=== PATIENT | male | born 1975 | race Two or more races ===

== ENCOUNTER 2021-05-16 12:46 | Inpatient (IN) | payer OTHER ==
[~2021-05-16] VITALS: Ht 172.7 cm; Wt 66.2 kg
[2021-05-16] MEDS ORDERED: SODIUM CHLORIDE 0.9% 500 ML IVB ONE (13:30)
[2021-05-16 14:23] LABS: Urine Bacteria NONE SEEN /hpf (None Seen); Urine Blood 1+ /uL (Negative); Urine Mucus FEW (None Seen); Urine Specific Gravity 1.027 (1.001-1.035); Urine WBC 29 /hpf (0 - 3)
[2021-05-16 15:05] LABS: Basophils # (auto) 0.1 10 ^3/uL (0-0.2); Eosinophils # (auto) 0.1 10 ^3/uL (0-0.8); Nucleated Red Blood Cells % 0.1 %; White Blood Cell 5.1 10^3/uL (4.4-10.8)
[2021-05-16 15:07] LABS: Basophils % (auto) 1.1 % (0.0-2.0); Eosinophils % (auto) 2.4 % (0.0-7.0); Hematocrit 29.4 % (41.0-53.0); Hemoglobin 9.7 g/dL (13.5-17.5); Lymphocytes % (auto) 18.7 % (10.0-50.0); Mean Corpuscular Volume 78.9 fL (80.0-100.0); Monocytes # (auto) 0.4 10 ^3/uL (0-1.3); Monocytes % (auto) 7.2 % (0.0-12.0); Neutrophils # (auto) 3.6 10 ^3/uL (1.6-8.6); Neutrophils % (auto) 70.6 % (37.0-80.0); Red Blood Cells 3.73 10^6/uL (4.5-5.90); Red Cell Distribution Width 22.3 % (11.8-14.3)
[2021-05-16] MEDS ORDERED: levoFLOXacin 500MG 100 ML IV ONE (15:45)
[2021-05-16] MEDS ORDERED: MORPHINE SULFATE 4 MG/ML SYR/VIAL IV ONE (16:30)
[2021-05-16] MEDS ORDERED: ONDANSETRON HCL 4 MG/2 ML VIAL IV ONE ×2 (16:30→19:15)
[2021-05-16 18:13] LABS: Alanine Aminotransferase 129 U/L (16-61); Aspartate Aminotransferase 96 U/L (15-37)
[2021-05-16 18:38] LABS: Alkaline Phosphatase 470 U/L (45-117); Anion Gap 7 (5-15); BUN/Creatinine Ratio 12.7; Blood Urea Nitrogen 10 mg/dL (7-18); Carbon Dioxide 22 mmol/L (21-32); Chloride 110 mmol/L (98-107); GFR African American 138 mL/min; GFR Non-African American 114 mL/min; Glucose 82 mg/dL (74-106); Potassium 3.3 mmol/L (3.5-5.1); Sodium 139 mmol/L (136-145)
[2021-05-16 18:39] LABS: Albumin 2.5 g/dL (3.4-5.0); Amylase 73 U/L (25-115); Bilirubin, Total 7.5 mg/dL (0.2-1.0); Calcium 8.2 mg/dL (8.5-10.1); Lipase 143 U/L (73-393); Total Protein 8.7 g/dL (6.4-8.2)
[2021-05-16] MEDS ORDERED: HYDROmorphone HCL 2 MG/ML VL IV ONE (19:15)
[2021-05-16] MEDS ORDERED: HYDROcodone-ACET 5/325MG TAB PO PRN (23:15)
[2021-05-16] MEDS ORDERED: ACETAMINOPHEN 325 MG TAB PO PRN (23:15)
[2021-05-16] MEDS ORDERED: DOCUSATE SOD 100 MG CAP PO PRN (23:15)
[2021-05-17] MEDS: POTASSIUM CHL 20MEQ/50ML 50 ML IV SCH ×2 (00:12→01:58)
[2021-05-17] MEDS ORDERED: MORPHINE SULFATE INJECTION 2 MG/ML SYRG IV PRN (01:00)
[2021-05-17] MEDS ORDERED: NITROGLYCERIN 0.4 MG SL TAB SL PRN (01:00)
[2021-05-17] MEDS: hydrALAZINE HCL 20 MG/ML VL IV PRN ×2 (02:13→12:24)
[2021-05-17] MEDS: ONDANSETRON HCL 4 MG/2 ML VIAL IV PRN (03:03)
[2021-05-17] MEDS: MORPHINE SULFATE INJECTION 2 MG/ML SYRG IV PRN ×2 (03:03→21:48)
[2021-05-17 05:00] VITALS: BP 164/93
[2021-05-17 07:00] VITALS: BP 149/86
[2021-05-17 08:35] LABS: Basophils # (auto) 0.1 10 ^3/uL (0-0.2); Eosinophils # (auto) 0.2 10 ^3/uL (0-0.8); Hemoglobin 9.5 g/dL (13.5-17.5); Lymphocytes # (auto) 0.9 10 ^3/uL (0.4-5.4); Mean Corpuscular Hemoglobin 25.5 pg (28.0-32.0); Mean Corpuscular Volume 79.4 fL (80.0-100.0); Monocytes # (auto) 0.4 10 ^3/uL (0-1.3); Neutrophils # (auto) 3.5 10 ^3/uL (1.6-8.6); White Blood Cell 5.1 10^3/uL (4.4-10.8)
[2021-05-17 08:38] LABS: Basophils % (auto) 1.1 % (0.0-2.0); Eosinophils % (auto) 3.9 % (0.0-7.0); Hematocrit 29.5 % (41.0-53.0); Mean Corpuscular Hgb Conc. 32.1 g/dL (32.0-36.0); Monocytes % (auto) 8.6 % (0.0-12.0); Neutrophils % (auto) 68.4 % (37.0-80.0); Nucleated Red Blood Cells % 0.2 %; Red Blood Cells 3.72 10^6/uL (4.5-5.90); Red Cell Distribution Width 22.6 % (11.8-14.3)
[2021-05-17 08:48] LABS: Albumin 2.4 g/dL (3.4-5.0); Calcium 7.9 mg/dL (8.5-10.1); Potassium 3.2 mmol/L (3.5-5.1)
[2021-05-17 08:52] LABS: BUN/Creatinine Ratio 10.7; Bilirubin, Total 7.1 mg/dL (0.2-1.0); Total Protein 7.7 g/dL (6.4-8.2)
[2021-05-17] MEDS: levoFLOXacin 750MG 150 ML IV SCH (11:33)
[2021-05-17] MEDS: FAMOTIDINE (10MG/ML) 2ML VL IV SCH (11:33)
[2021-05-17] MEDS: ENOXAPARIN SOD 40 MG/0.4 ML SYRINGE SC SCH (11:33)
[2021-05-17] MEDS ORDERED: cloNIDine HCL 0.1 MG TAB PO PRN (11:45)
[2021-05-17] MEDS ORDERED: amLODIPine BESYLATE 5 MG TAB PO ONE (11:45)
[2021-05-17] MEDS ORDERED: IOHEXOL 300 MG/ML 100ML BOTTLE IJ ONE (11:49)
[2021-05-17 13:00] VITALS: BP 176/92
[2021-05-17 17:00] VITALS: BP 145/75
[2021-05-17 20:00] VITALS: BP 143/78
[2021-05-17 21:43] VITALS: BP 143/78
[2021-05-17] MEDS: METOPROLOL TARTRATE 50 MG TAB PO SCH (21:49)
[2021-05-18 05:32] VITALS: BP 126/78
[2021-05-18 07:00] VITALS: BP 142/80
[2021-05-18] MEDS: ENOXAPARIN SOD 40 MG/0.4 ML SYRINGE SC SCH (09:50)
[2021-05-18] MEDS: levoFLOXacin 750MG 150 ML IV SCH (09:50)
[2021-05-18] MEDS: FAMOTIDINE (10MG/ML) 2ML VL IV SCH (09:50)
[2021-05-18] MEDS: amLODIPine BESYLATE 5 MG TAB PO SCH (09:51)
[2021-05-18] MEDS: METOPROLOL TARTRATE 50 MG TAB PO SCH ×2 (09:51→21:51)
[2021-05-18 13:00] VITALS: BP 154/94
[2021-05-18 17:00] VITALS: BP 144/85
[2021-05-18 21:30] VITALS: BP 135/87
[2021-05-19 09:00] VITALS: BP 172/103
[2021-05-19] MEDS: FAMOTIDINE (10MG/ML) 2ML VL IV SCH (09:03)
[2021-05-19] MEDS: METOPROLOL TARTRATE 50 MG TAB PO SCH ×2 (09:03→21:27)
[2021-05-19] MEDS: buPROPion HCL 100 MG TAB PO SCH (09:04)
[2021-05-19] MEDS: amLODIPine BESYLATE 5 MG TAB PO SCH (09:04)
[2021-05-19] MEDS: levoFLOXacin 500 MG TAB PO SCH (09:04)
[2021-05-19] MEDS: ONDANSETRON HCL 4 MG/2 ML VIAL IV PRN (09:05)
[2021-05-19] MEDS: ENOXAPARIN SOD 40 MG/0.4 ML SYRINGE SC SCH (09:25)
[2021-05-19] MEDS: HYDROmorphone HCL 2 MG TAB PO PRN (12:43)
[2021-05-19 13:00] VITALS: BP 162/99
[2021-05-19 17:00] VITALS: BP 138/85
[2021-05-19 20:00] VITALS: BP 157/97
[2021-05-19] MEDS: MORPHINE SULFATE INJECTION 2 MG/ML SYRG IV PRN (20:25)
[2021-05-19 22:00] VITALS: BP 157/97
[2021-05-19] MEDS: hydrALAZINE HCL 20 MG/ML VL IV PRN (22:37)
[2021-05-20] MEDS: buPROPion HCL 100 MG TAB PO SCH (08:38)
[2021-05-20] MEDS: amLODIPine BESYLATE 5 MG TAB PO SCH (08:38)
[2021-05-20] MEDS: levoFLOXacin 500 MG TAB PO SCH (08:39)
[2021-05-20] MEDS: FAMOTIDINE (10MG/ML) 2ML VL IV SCH (08:39)
[2021-05-20] MEDS: METOPROLOL TARTRATE 50 MG TAB PO SCH ×2 (08:39→21:40)
[2021-05-20] MEDS: ENOXAPARIN SOD 40 MG/0.4 ML SYRINGE SC SCH (08:40)
[2021-05-20] MEDS: HYDROmorphone HCL 2 MG TAB PO PRN (08:40)
[2021-05-20 13:00] VITALS: BP 136/86
[2021-05-20 22:00] VITALS: BP 129/82
== END 2021-05-21 00:50 | disposition short-term general hospital (02) | DRG 720 ==
LOC: ER 12:46 → OVERFLOW 05-17 00:51 → WEST WING 05-17 03:01
PROVIDERS: ADMIT Nurse Practitioner Family; ATTEND Family Medicine
DX: A41.9 Sepsis, unspecified organism (principal); I81 Portal vein thrombosis; E43 Unspecified severe protein-calorie malnutrition; C25.9 Malignant neoplasm of pancreas, unspecified; K83.1 Obstruction of bile duct; I82.890 Acute embolism and thrombosis of other specified veins; C78.7 Secondary malignant neoplasm of liver and intrahepatic bile duct; E86.0 Dehydration; E88.09 Other disorders of plasma-protein metabolism, not elsewhere classified; D64.9 Anemia, unspecified; E87.6 Hypokalemia; F12.90 Cannabis use, unspecified, uncomplicated; N39.0 Urinary tract infection, site not specified; I10 Essential (primary) hypertension; N20.0 Calculus of kidney; F17.210 Nicotine dependence, cigarettes, uncomplicated; N28.89 Other specified disorders of kidney and ureter; F15.90 Other stimulant use, unspecified, uncomplicated; F32.A Depression, unspecified; F41.9 Anxiety disorder, unspecified; Z20.822 Contact with and (suspected) exposure to COVID-19; R79.89 Other specified abnormal findings of blood chemistry; I16.1 Hypertensive emergency; Z88.0 Allergy status to penicillin
CPT/HCPCS: 36415; 74176; 74177; 76775; 80053; 81001; 82150; 83690; 84484; 85025; 86301; 87040; 87086; 87426; 93005; 96361; 96365; 96367; 96375; 96376; G0378; J1956; J2405; J3490